=== PATIENT | female | born 2000 | race Hispanic/Latino ===

== ENCOUNTER 2024-02-09 10:49 | Emergency (ER) | payer SELFPAY ==
[~2024-02-09] VITALS: Ht 149.9 cm; Wt 69.9 kg
[2024-02-09 11:29] VITALS: BP 126/79; PULSE 84; RESP 18; TEMP 98.3; O2SAT 100
[2024-02-09] MEDS: acetaMINOPHEN 500 MG TABLET PO ONE (12:00)
== END 2024-02-09 12:05 | disposition home or self-care (01) ==
LOC: EDH 10:49
DX: O26.891 Other specified pregnancy related conditions, first trimester (principal); R51.9 Headache, unspecified; Z3A.08 8 weeks gestation of pregnancy; Z90.49 Acquired absence of other specified parts of digestive tract; Z98.890 Other specified postprocedural states
CPT/HCPCS: 99282